=== PATIENT | male | born 1945 | race Caucasian/White ===

== ENCOUNTER 2022-04-08 13:45 | Emergency (ER) | payer MEDICARE, OTHER ==
[2022-04-08 14:20] VITALS: TEMP 98.6
[2022-04-08] MEDS ORDERED: ORPHENADRINE 30 MG/ML 2 ML VIAL IM STA (15:39)
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
[2022-04-08 17:26] VITALS: BP 132/78; PULSE 68; RESP 18
== END 2022-04-08 17:26 | disposition home or self-care (01) ==
LOC: EC 13:45
DX: M62.830 Muscle spasm of back (principal); E11.9 Type 2 diabetes mellitus without complications; E78.5 Hyperlipidemia, unspecified; I10 Essential (primary) hypertension; Z87.891 Personal history of nicotine dependence; Z20.822 Contact with and (suspected) exposure to COVID-19; Z88.8 Allergy status to other drugs, medicaments and biological substances; Z88.6 Allergy status to analgesic agent
CPT/HCPCS: 99283; 96372; 93005; 87635; J2360

== ENCOUNTER 2022-11-27 13:21 | Emergency (ER) | payer OTHER, MEDICARE ==
[2022-11-27 13:33] VITALS: TEMP 97.7
[2022-11-27] MEDS ORDERED: METOCLOPRAMIDE 5 MG/ML 2 ML VIAL IVP STA (13:35)
[2022-11-27] MEDS ORDERED: MECLIZINE 12.5 MG TAB PO STA ×2 (13:35→13:36)
[2022-11-27] MEDS ORDERED: SCOPOLAMINE 1 MG/72 HR PATCH TRANSDERM STA (13:35)
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
[2022-11-27 13:55] VITALS: RESP 16
[2022-11-27 15:13] VITALS: BP 124/86; PULSE 78
== END 2022-11-27 15:13 | disposition home or self-care (01) ==
LOC: EC 13:21
DX: R42 Dizziness and giddiness (principal); E11.9 Type 2 diabetes mellitus without complications; I10 Essential (primary) hypertension; Z87.891 Personal history of nicotine dependence; Z88.8 Allergy status to other drugs, medicaments and biological substances
CPT/HCPCS: 93005; 99284; 96374; J2765